=== PATIENT | female | born 1965 | race Two or more races ===

== ENCOUNTER 2016-10-28 16:50 | Inpatient (IN) | payer SELFPAY ==
[~2016-10-28] VITALS: Ht 160 cm; Wt 85.7 kg
[~2016-10-28 16:50] MED LIST: IOHEXOL-350 100 ML BOTTLE ONE; SODIUM CHLORIDE 0.9% 10ML VIAL ONE
[2016-10-28] MEDS ORDERED: MORPHINE SULFATE 4 MG/ML CPJ (NOT FOR IM USE) IV STA (17:17)
[2016-10-28] MEDS ORDERED: ASPIRIN 81MG TABLET PO ONE (17:30)
[2016-10-28] MEDS ORDERED: NITROGLYCERIN OINT 1GM/INCH UDPKT TD ONE (17:30)
[2016-10-28 17:40] LABS: BASOPHILS % 0.7 % (0.0-2.0); EOSINOPHILS % 4.8 % (0.0-5.0); HEMATOCRIT. 33.1 % (36.0-48.0); LYMPHOCYTES % 20.9 % (20.0-50.0); MEAN CORPUSCULAR HEMOGLOBIN 27.7 pg (28.0-32.0); MEAN CORPUSCULAR VOLUME 83.8 fL (81.0-99.0); MEAN PLATELET VOLUME 7.6 fl (7.4-10.4); MONOCYTES % 6.4 % (2.0-8.0); NEUTROPHILS % 67.2 % (40.0-76.0); PLATELET 364 x1000/uL (130-400); RED BLOOD CELL COUNT 3.95 mill/uL (4.2-5.4); RED CELL DISTRIBUTION WIDTH 13.6 % (11.6-14.6)
[2016-10-28 17:46] LABS: CHLORIDE 105 mEq/L (98-107)
[2016-10-28 17:50] LABS: D-DIMER 1.71 mg/L FEU (<0.50); PARTIAL THROMBOPLASTIN TIME 27.3 sec (24.0-34.0); PROTHROMBIN TIME 10.2 sec
[2016-10-28 17:52] LABS: CARBON DIOXIDE 30 mEq/L (21-32)
[2016-10-28 17:56] LABS: TROPONIN I 0.03 ng/mL (0.00-0.04)
[2016-10-28] MEDS ORDERED: SODIUM CHLORIDE 0.9% 1,000 ML IV ONE (18:18)
[2016-10-28] MEDS ORDERED: FUROSEMIDE 20MG/2ML VIAL IVP ONE (19:00)
[2016-10-28] MEDS ORDERED: ACETAMINOPHEN 325MG TABLET PO PRN (19:15)
[2016-10-28] MEDS ORDERED: DIPHENHYDRAMINE 50MG/ML VIAL IV PRN (19:15)
[2016-10-28] MEDS ORDERED: IPRATROPIUM/ALBUTEROL 0.5-3(2.5)MG/3ML NEB INH PRN (19:15)
[2016-10-28] MEDS ORDERED: MAGNESIUM/ALUMINUM HYDROXIDE/SIMETHICONE 30ML UDC PO PRN (19:15)
[2016-10-28] MEDS ORDERED: GUAIFENESIN 200MG/10ML SUGAR FREE UDC PO PRN (19:15)
[2016-10-28] MEDS ORDERED: HYDROCODONE/ACETAMINOPHEN 5/325MG TABLET PO PRN (19:15)
[2016-10-28] MEDS ORDERED: LORAZEPAM 2MG/ML CPJ IV PRN (19:15)
[2016-10-28] MEDS ORDERED: CLONIDINE 0.1MG TABLET PO PRN (19:15)
[2016-10-28] MEDS ORDERED: DOCUSATE SODIUM 100MG CAPSULE PO PRN (19:15)
[2016-10-28 19:32] LABS: CLARITY URINE CLEAR (CLEAR); COLOR URINE YELLOW (YELLOW); GLUCOSE URINE NEGATIVE (NEGATIVE); KETONES URINE NEGATIVE (NEGATIVE); LEUKOCYTE ESTERASE URINE TRACE (NEGATIVE); NITRITE URINE NEGATIVE (NEGATIVE); OCCULT BLOOD URINE NEGATIVE (NEGATIVE); PROTEIN URINE NEGATIVE (NEGATIVE); SPECIFIC GRAVITY URINE 1.012 (1.005-1.030); UROBILINOGEN URINE 0.2 E.U./dL (0.2-1.0)
[2016-10-28 20:05] LABS: CARBON DIOXIDE 28 mEq/L (21-32); CHLORIDE 107 mEq/L (98-107)
[2016-10-28] MEDS ORDERED: NA PHOS,M-B/NA PHOS,DI-BA ENEMA 118ML PR PRN (20:45)
[2016-10-28] MEDS ORDERED: HYDROMORPHONE HCL/PF 2MG/ML CPJ IV PRN (20:45)
[2016-10-28 22:00] VITALS: BP 166/92
[2016-10-28] MEDS ORDERED: ENOXAPARIN 40MG/0.4ML SYR SUBCUT NR (22:29)
[2016-10-28] MEDS ORDERED: ASPI-1159 PO (23:32)
[2016-10-29] VITALS: BP 121/78
[2016-10-29] MEDS ORDERED: DEXTROSE 50% WATER 50ML SYRINGE IV PRN (03:45)
[2016-10-29 04:00] VITALS: BP 115/68
[2016-10-29 05:55] LABS: CARBON DIOXIDE 29 mEq/L (21-32); CHLORIDE 104 mEq/L (98-107)
[2016-10-29 06:04] LABS: HDL CHOLESTEROL 35 mg/dL (40-59); LDL CHOLESTEROL 72 mg/dL (5-100)
[2016-10-29] MEDS: BLOOD SUGAR DIAGNOSTIC STRIP TEST SCH ×2 (06:22→11:45)
[2016-10-29] MEDS: INSULIN LISPRO 100 UNITS/ML SUBCUT SCH ×2 (06:22→12:15)
[2016-10-29 06:25] LABS: BASOPHILS % 1.2 % (0.0-2.0); HEMATOCRIT. 33.3 % (36.0-48.0); HEMOGLOBIN. 11.3 g/dL (12.0-16.0); LYMPHOCYTES % 22.9 % (20.0-50.0); MEAN CORPUSCULAR HEMOGLOBIN 28.3 pg (28.0-32.0); MEAN CORPUSCULAR VOLUME 83.6 fL (81.0-99.0); MEAN PLATELET VOLUME 8.1 fl (7.4-10.4); MONOCYTES % 6.8 % (2.0-8.0); NEUTROPHILS % 65.1 % (40.0-76.0); PLATELET 359 x1000/uL (130-400); RED BLOOD CELL COUNT 3.98 mill/uL (4.2-5.4); RED CELL DISTRIBUTION WIDTH 13.9 % (11.6-14.6)
[2016-10-29] MEDS ORDERED: PNEUMOCOCCAL 23-VAL P-SAC VAC 0.5 ML IM ONE (09:00)
[2016-10-29] MEDS ORDERED: ASPIRIN 81MG EC TABLET PO SCH (09:00)
[2016-10-29 14:12] VITALS: BP 128/67
[2016-10-29] MEDS ORDERED: ENOXAPARIN 40MG/0.4ML SYR SUBCUT SCH (18:00)
== END 2016-10-29 14:45 | disposition home or self-care (01) | DRG 203 ==
LOC: ER 17:18 → 5WST 19:01 → EDBEDREQ 19:07 → ENRESERV 20:06
PROVIDERS: ADMIT Internal Medicine; ATTEND Internal Medicine
DX: M94.0 Chondrocostal junction syndrome [Tietze] (principal); I11.9 Hypertensive heart disease without heart failure; E78.5 Hyperlipidemia, unspecified; I25.10 Atherosclerotic heart disease of native coronary artery without angina pectoris; K21.9 Gastro-esophageal reflux disease without esophagitis; Z82.49 Family history of ischemic heart disease and other diseases of the circulatory system; Z91.14 Patient's other noncompliance with medication regimen
CPT/HCPCS: 36415; 71010; 71275; 80048; 80053; 80061; 81001; 82962; 83690; 83880; 84439; 84443; 84484; 85025; 85379; 85610; 85730; 93005; 96361; 96374; 96375; 99285; A4216; J1170; J1940; J2270; J7030; J7620; Q9967